=== PATIENT | female | born 1940 | race Caucasian/White ===

== ENCOUNTER 2017-12-21 12:31 | Inpatient (IN) | payer BC, OTHER ==
[2017-12-21 12:46] VITALS: TEMP 97.8; BMI 17.5
[2017-12-21] MEDS ORDERED: ASPIRIN 81 MG CHEWABLE TABLETS PO ONE ×2 (13:30→14:49)
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
[2017-12-21 13:47] LABS: BASO % 0.6 % (0-2.0); EOS % 0.8 % (0-4.5); HEMATOCRIT 40.6 % (32.4-45.2); HEMOGLOBIN 13.5 GM/dL (10.7-15.3); MCH 33.1 pg (25.7-33.7); MCHC 33.1 g/dl (32.0-36.0); MEAN CELL VOLUME 99.8 fl (80-96); MEAN PLT VOLUME 7.9 fl (7.5-11.1); MONO % 9.3 % (3.8-10.2); NEUT % 69.3 % (42.8-82.8); PLATELET COUNT 245 K/MM3 (134-434); RBC 4.07 M/mm3 (3.60-5.2); RDW 13.4 % (11.6-15.6); WHITE BLOOD COUNT 8.2 K/mm3 (4.0-10.0)
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
[2017-12-21] MEDS ORDERED: ASPIRIN 81 MG CHEWABLE TABLETS ONE (14:07)
[2017-12-21 14:26] LABS: ALBUMIN 3.6 g/dl (3.4-5.0); ALK PHOS 71 U/L (45-117); ANION GAP 6 MMOL/L (8-16); BILIRUBIN,TOTAL 0.8 mg/dL (0.2-1); BLOOD UREA NITROGEN 15 mg/dL (7-18); CALCIUM 9.2 mg/dL (8.5-10.1); CHLORIDE 106 mmol/L (98-107); CO2 29 mmol/L (21-32); CREATININE 0.8 mg/dL (0.55-1.3); GLUCOSE,RANDOM 85 mg/dL (74-106); MAGNESIUM 2.1 mg/dL (1.8-2.4); POTASSIUM 4.7 mmol/L (3.5-5.1); SGOT/AST 41 U/L (15-37); SGPT/ALT 19 U/L (13-61); SODIUM 141 mmol/L (136-145)
[2017-12-21 14:28] LABS: INR 1.18 (0.83-1.09)
[2017-12-21] MEDS ORDERED: HEPARIN NA (PORCINE) 5,000 UNITS/ML 1ML VIAL IVPUSH PRN ×2 (14:35)
[2017-12-21] MEDS ORDERED: HEPARIN - 25,000 UNIT in SODIUM CHLORIDE 495 ML IV SCH (14:45)
--- NOTE | 2017-12-21 14:48 | CON.CARD ---
Cardiology Consult (text) - Consultation Consultation Note: Cardiology Consult Dictated IMP: PAF on Eliquis COPD Subacute anterior NSTEMI vs. Possible Takitsubo Cardiomyopathy REC: 1. ASA/ High dose Statin/Start UFH gtts, Hold further Eliquis. 2. Plavix to begin this evening with load then 75mg daily 3. Telemetry 4. Echo 5. Serial cardiac enzymes and ECGs. 6. Will need cardiac cath- plan to initiate plans for transfer
[2017-12-21] MEDS ORDERED: HEPARIN INFUSION - 25,000 UNITS/500 ML INFUS.BAG IVPB ONE (14:56)
--- NOTE | 2017-12-21 15:12 | ECHO ---
Name: YOVANI POLLOCK Exam:Adult Echocardiogram Study Date: 12/21/2017 02:39 PM Age: 77 yrs Reason For Study: ecg changes Height: 64 in Weight: 102 lb BSA: 1.5 m2 MMode/2D Measurements & Calculations IVSd: 0.76 cm Ao root diam: 3.3 cm LVIDd: 4.1 cm LA dimension: 2.4 cm LVIDs: 3.0 cm LVPWd: 0.87 cm EDV(Teich): 75.9 ml LVOT diam: 2.1 cm ESV(Teich): 36.4 ml TAPSE: 2.3 cm RV S Ranjith: 17.7 cm/sec Doppler Measurements & Calculations MV E max ranjith: 70.3 cm/sec MR max ranjith: 477.8 cm/sec MV A max ranjith: 65.0 cm/sec MR max P.3 mmHg MV E/A: 1.1 MV dec time: 0.17 sec TR max ranjith: 289.6 cm/sec Med Peak E' Ranjith: 6.0 cm/sec TR max P.6 mmHg Med E/e': 11.7 Lat Peak E' Ranjith: 6.2 cm/sec Lat E/e': 11.3 Left Ventricle Ejection Fraction = 25-30%. Preserved wall motion at the base with diffuse severe hypokinesis of othe r segments. Right Ventricle The right ventricle is normal in size and function. Atria Normal left and right atrial size and function. Mitral Valve The mitral valve is normal in structure and function. There is no mitral valve stenosis. There is mil d mitral regurgitation. Tricuspid Valve The tricuspid valve is normal in structure and function. There is mild tricuspid regurgitation. Aortic Valve There is mild aortic sclerosis.;. No hemodynamically significant valvular aortic stenosis. Pulmonic Valve The pulmonic valve is not well seen, but is grossly normal. There is no pulmonic valvular stenosis. T here is no pulmonic valvular regurgitation. Great Vessels The aortic root is normal size. Pericardium/Pleura Trivial pericardial effusion not hemodynamically significant. Interpretation Summary Ejection Fraction = 25-30%. Preserved wall motion at the base with diffuse severe hypokinesis of other segments. The right ventricle is normal in size and function. There is mild mitral regurgitation. There is mild tricuspid regurgitation. There is mild aortic sclerosis.; Trivial pericardial effusion not hemodynamically significant MD Olivares *Rey 12/21/2017 03:12 PM
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
[2017-12-21 18:18] VITALS: BP 119/80; PULSE 72
[2017-12-21] MEDS ORDERED: CLOPIDOGREL BISULFATE 300 MG TABLET PO ONE (20:00)
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
[2017-12-21] MEDS ORDERED: ATORVASTATIN CA 80 MG TABLET (FP) PO SCH (22:00)
[2017-12-22] MEDS ORDERED: ASPIRIN 81 MG CHEWABLE TABLETS PO SCH (10:00)
[2017-12-22] MEDS ORDERED: CLOPIDOGREL BISULFATE 75 MG TABLET (FP) PO SCH (10:00)
--- NOTE | 2017-12-22 12:45 | EKG ---
Test Reason : Blood Pressure : / mmHG Vent. Rate : 072 BPM Atrial Rate : 072 BPM P-R Int : 174 ms QRS Dur : 068 ms QT Int : 442 ms P-R-T Axes : 086 -77 125 degrees QTc Int : 483 ms NORMAL SINUS RHYTHM LEFT AXIS DEVIATION PULMONARY DISEASE PATTERN SEPTAL INFARCT , AGE UNDETERMINED T WAVE ABNORMALITY, CONSIDER ANTEROLATERAL ISCHEMIA ABNORMAL ECG WHEN COMPARED WITH ECG OF 13-APR-2015 23:08, SIGNIFICANT CHANGES HAVE OCCURRED Confirmed by YANDY GILLILAND MD ([id number]) on 12/22/2017 12:44:42 PM Referred By: Confirmed By:YANDY GILLILAND MD
== END 2017-12-21 18:18 | disposition short-term general hospital (02) | DRG 281 ==
LOC: JER 12:31 → JERBED 14:42
PROVIDERS: ADMIT Specialist; ATTEND Specialist
DX: I21.4 Non-ST elevation (NSTEMI) myocardial infarction (principal); Z68.1 Body mass index [BMI] 19.9 or less, adult; I48.91 Unspecified atrial fibrillation; J44.9 Chronic obstructive pulmonary disease, unspecified; I25.10 Atherosclerotic heart disease of native coronary artery without angina pectoris; F32.9 Major depressive disorder, single episode, unspecified; Z87.891 Personal history of nicotine dependence; I08.1 Rheumatic disorders of both mitral and tricuspid valves; I11.0 Hypertensive heart disease with heart failure; R63.6 Underweight
CPT/HCPCS: 36415; 71046-TC-FY; 80053; 82550; 82553; 83735; 84484; 85025; 85610; 93005; 93010; 93306-TC; 99285-25; J1644